=== PATIENT | female | born 1995 | race Two or more races ===

== ENCOUNTER 2017-11-14 16:23 | Emergency (ER) | payer SELFPAY ==
[~2017-11-14] VITALS: Ht 160 cm; Wt 86.2 kg
[2017-11-14] MEDS ORDERED: ACETAMINOPHEN ES 500 MG TABLET ONE (17:30)
--- NOTE | 2017-11-14 17:30 | NUR ---
FEVER, COUGH, BODYACHES, CHILLS X 3 DAYS +NAUSEA, VOMITING. NO MEDS TAKEN TODAY. A/OX 4, BREATHING EVEN AND UNLABORED. NO SOB, NAD, VITALS STABLE. SAFETY AND COMFORT MEASURES IN PLACE. AWAITING MD ORDERS.
[2017-11-14] MEDS ORDERED: ONDANSETRON 4 MG TAB.RAPDIS ONE (17:31)
[2017-11-14] MEDS: ONDANSETRON 4 MG TAB.RAPDIS SL ONE (17:34)
[2017-11-14] MEDS: ACETAMINOPHEN ES 500 MG TABLET PO ONE (17:34)
--- NOTE | 2017-11-14 17:36 | NUR ---
MEDICATED PATIENT PER MD ORDERS.
[2017-11-14 18:26] LABS: APPEARANCE,URINE Clear (CLEAR); BILIRUBIN,URINE Negative (NEGATIVE); BLOOD, URINE Moderate Ery/uL (NEGATIVE); COLOR,URINE Yellow (YELLOW); KETONES,URINE Trace (NEGATIVE); LEUKOCYTE ESTERASE ,URINE Large (NEGATIVE); NITRITE, URINE Positive (NEGATIVE); PH,URINE 6.5 (5.0-8.0); PROTEIN,URINE 100 mg/dl (NEGATIVE); UGLUCOSE Negative (NEGATIVE)
[2017-11-14 18:37] LABS: BACTERIA,URINE Many /HPF (None Seen); SQUAMOUS EPITHELIAL CELL,UR Moderate /HPF (None Seen); URINE AMORPHOUS URATE Moderate /HPF (None Seen); WBC,URINE TOO NUMEROUS TO COUN /HPF (0-3)
[2017-11-14] MEDS ORDERED: LIDOCAINE /MPF 1% VIAL 5 ML VIAL ONE (18:50)
[2017-11-14] MEDS ORDERED: CEFTRIAXONE 1 G VIAL ONE (18:50)
[2017-11-14] MEDS: CEFTRIAXONE 1 G VIAL IM ONE (19:00)
[2017-11-14 19:03] VITALS: BP 128/69
--- NOTE | 2017-11-14 19:05 | NUR ---
Patient discharged to home in stable condition. Written and verbal after care instructions given. Patient verbalizes understanding of instruction.
== END 2017-11-14 19:05 | disposition home or self-care (01) ==
LOC: ER 16:24
DX: N12 Tubulo-interstitial nephritis, not specified as acute or chronic (principal); J06.9 Acute upper respiratory infection, unspecified
CPT/HCPCS: 81000-TC; 84703-TC; 87086-TC; 87186-TC; A4606; J0696; J3490; Q0162; Z7610

== ENCOUNTER 2024-01-12 11:04 | Emergency (ER) | payer MEDICAID, OTHER ==
[~2024-01-12] VITALS: Ht 160 cm; Wt 90.7 kg
[2024-01-12 12:11] LABS: APPEARANCE,URINE BLOODY (CLEAR); COLOR,URINE RED (YELLOW)
[2024-01-12 12:13] LABS: BACTERIA,URINE Rare /HPF (None Seen); RBC,URINE TOO NUMEROUS TO COUN /HPF (0-2); SQUAMOUS EPITHELIAL CELL,UR Rare /HPF (None Seen); WBC,URINE 0-2 /HPF (0-3)
[2024-01-12 12:15] LABS: BASOPHILS % (AUTO) 0.4 % (0.0-2.0); EOSINOPHILS # (AUTO) 0.1 K/uL (0.0-0.7); EOSINOPHILS % (AUTO) 1.3 % (0.0-6.0); HEMATOCRIT 42 % (33-45); HEMOGLOBIN 14.7 g/dL (11.5-14.8); LYMPHOCYTES # (AUTO) 2.5 K/uL (0.8-4.8); LYMPHOCYTES % (AUTO) 22.7 % (20.0-44.0); MEAN CORPUSCULAR HEMOGLOBIN 31 PG (26.0-33.0); MEAN CORPUSCULAR HGB CONC 35 g/dl (31.0-36.0); MEAN CORPUSCULAR VOLUME 88 fL (82-100); MONOCYTES # (AUTO) 1.3 K/uL (0.1-1.30); MONOCYTES % (AUTO) 11.6 % (2.0-12.0); PLATELET COUNT (AUTO) 286 K/uL (150-450); RED BLOOD CELL COUNT(AUTO) 4.81 MIL/uL (4.0-5.2); RED CELL DISTRIBUTION WIDTH 13.3 % (11.5-15.0); WHITE BLOOD COUNT (AUTO) 10.9 K/uL (4.3-11.0)
[2024-01-12 12:38] LABS: CALCIUM, SERUM 10.9 mg/dL (8.5-10.1); CREATININE 0.6 mg/dL (0.6-1.3); POTASSIUM 3.8 mmol/L (3.5-5.1)
[2024-01-12] MEDS ORDERED: ONDANSETRON HCL/PF 4 MG/2 ML VIAL ONE (13:00)
[2024-01-12 13:02] LABS: BILIRUBIN,DIRECT 0.1 mg/dL (0.0-0.2); BILIRUBIN,TOTAL 0.2 mg/dL (0.2-1.0); TOTAL PROTEIN, SERUM 8.4 g/dL (6.4-8.2)
[2024-01-12 14:58] VITALS: BP 125/82; TEMP 98.6; O2SAT 98
== END 2024-01-12 14:50 | disposition home or self-care (01) ==
LOC: ER 11:19
DX: O20.0 Threatened abortion (principal); R10.2 Pelvic and perineal pain
CPT/HCPCS: 99284; 76856; 85025; 80048; 80076; 81001; 36415; 86850; 84702; A4223; J2405; J7030